=== PATIENT | male | born 1990 | race Hispanic/Latino ===

== ENCOUNTER 2018-04-15 12:18 | Emergency (ER) | payer SELFPAY ==
[2018-04-15] MEDS ORDERED: Acetaminophen 500 MG TAB ONE (13:07)
[2018-04-15] MEDS ORDERED: Ondansetron ODT 4 MG TAB ONE (13:18)
[2018-04-15 14:31] LABS: Bilirubin Negative (Negative); Blood, Urine Negative (Negative); Clarity CLEAR (Clear); Glucose, Urine (Dipstick) Negative (Negative); Leukocyte Moderate (Negative); Nitrite Negative (Negative); Protein, Urine (Dipstick) Trace mg/dL (Neg-Trace); Specific Gravity, Urine 1.026 (1.002-1.036)
[2018-04-15 14:34] LABS: Bacteria/HPF None Seen HPF (None Seen); Hyaline Casts/LPF 0-3 HYALINE CAST LPF (0-3 Hyaline); Squamous Epithelial 0-3 HPF (0-3)
--- NOTE | 2018-04-15 14:46 | RAD ---
EXAM: CHEST ONE VIEW: History: Cough, body aches, fatigue, fever, shortness of breath, sore throat. Comparison: 04-07-16 FINDINGS: Heart size is normal. The lungs are clear. No pneumonia, edema, or pleural effusion. IMPRESSION: No significant intrathoracic disease. No evidence for pneumonia. Stable from prior study. POS: OFF
[2018-04-15 14:49] LABS: Transitional Epithelial 0-3 HPF (0-3)
[2018-04-15] MEDS ORDERED: cefTRIAXone\\ROCEPHIN 250 MG VIAL ONE (15:07)
[2018-04-15] MEDS ORDERED: Azithromycin 250 MG TAB ONE (15:07)
[2018-04-15] MEDS ORDERED: Ibuprofen 800 MG TAB ONE (16:03)
[2018-04-19 14:15] LABS: Chlamydia trachomatis by NAA Positive (Negative)
== END 2018-04-15 16:20 | disposition home or self-care (01) ==
LOC: ERS 12:18
DX: B34.9 Viral infection, unspecified (principal); N34.2 Other urethritis; F17.210 Nicotine dependence, cigarettes, uncomplicated
CPT/HCPCS: 71045; 81003; 81015; 87081; 87086; 87430; 87491; 87591; 87804; 94640; 96372; J0696; J7620; Q0162

== ENCOUNTER 2018-09-09 11:16 | Emergency (ER) | payer SELFPAY ==
[2018-09-09 11:58] LABS: Bilirubin Negative (Negative); Blood, Urine Negative (Negative); Clarity CLEAR (Clear); Glucose, Urine (Dipstick) Negative (Negative); Leukocyte Small (Negative); Nitrite Negative (Negative); Protein, Urine (Dipstick) Negative (Neg-Trace); Urobilinogen 0.2 mg/dL (0.2-1.0); pH, Urine 6.5 (5.0-9.0)
[2018-09-09 12:23] LABS: Bacteria/HPF None Seen HPF (None Seen); Hyaline Casts/LPF NONE SEEN LPF (0-3 Hyaline); RBC/HPF None Seen HPF (0-3); Squamous Epithelial None Seen HPF (0-3)
[2018-09-09] MEDS ORDERED: cefTRIAXone\\ROCEPHIN 250 MG VIAL ONE (12:51)
[2018-09-09] MEDS ORDERED: Azithromycin 250 MG TAB ONE (12:51)
[2018-09-09] MEDS ORDERED: Lidocaine 1% PF 5 ML VIAL ONE (12:51)
[2018-09-11 18:08] LABS: Chlamydia trachomatis by NAA Negative (Negative)
== END 2018-09-09 13:11 | disposition home or self-care (01) ==
LOC: ERS 11:16
DX: N34.2 Other urethritis (principal); Z71.6 Tobacco abuse counseling; F17.210 Nicotine dependence, cigarettes, uncomplicated
CPT/HCPCS: 81003; 81015; 87491; 87591; 96372; 99406; J0696; J2001

== ENCOUNTER 2018-11-28 14:57 | Emergency (ER) | payer SELFPAY | END 2018-11-28 16:36 | disposition home or self-care (01) | LOC: ERS 14:57 | DX: L50.9 Urticaria, unspecified (principal); F17.210 Nicotine dependence, cigarettes, uncomplicated | CPT/HCPCS: 99282 ==

== ENCOUNTER 2019-01-07 19:36 | Emergency (ER) | payer SELFPAY ==
[2019-01-07] MEDS ORDERED: Ondansetron ODT 4 MG TAB ONE (20:32)
[2019-01-07 20:43] LABS: #Basophils 0.2 thou/uL (0.0-0.2); #Eosinphils 0.7 thou/uL (0.0-0.7); #Lymphocytes 3.5 thou/uL (1.20-3.40); #Monocytes 0.9 thou/uL (0.11-0.59); #Neutrophils 5.6 thou/uL (1.40-6.50); %Basophils 1.5 % (0.0-1.0); %Eosinophils 6.7 % (0.0-10.0); %Monocytes 8.6 % (0.0-10.0); %Neutrophils 51.2 % (42.0-75.0); Hemoglobin 15.5 g/dL (14.0-18.0); Mean Corpuscular Hemoglobin 28.4 pg (27.0-31.0); Mean Corpuscular Volume 86.1 fL (78.0-98.0); Mean Platelet Volume 6.8 fL (7.4-10.4); Platelet Count 333 thou/uL (130-400); RBC Distribution Width 12.4 % (11.5-14.5); Red Blood Cell (RBC) Count 5.45 mill/uL (4.70-6.10)
[2019-01-07 21:18] LABS: Bilirubin Negative (Negative); Blood, Urine Negative (Negative); Clarity Clear (Clear); Glucose, Urine (Dipstick) Normal (Negative); Leukocyte Negative Leu/uL (Negative); Nitrite Negative (Negative); Protein, Urine (Dipstick) 20 mg/dL (Neg-Trace); Urobilinogen Normal mg/dL (Less than 2)
[2019-01-07 21:49] LABS: ALT (SGPT) 20 U/L (8-55); AST (SGOT) 21 U/L (5-34); Albumin 4.8 g/dL (3.5-5.0); Alkaline Phosphatase 71 U/L (40-110); Anion Gap 12 mmol/L (10-20); BUN (Urea Nitrogen) 17 mg/dL (8.9-20.6); Bilirubin, Total 0.3 mg/dL (0.2-1.2); Calc. Creatinine Clearance 0 mL/min (70-130); Calcium 9.7 mg/dL (7.8-10.44); Carbon Dioxide 27 mmol/L (22-29); Chloride 101 mmol/L (98-107); Estimated GFR-MDRD Greater than 90; Glucose 110 mg/dL (70-105); Potassium 3.8 mmol/L (3.5-5.1); Protein, Total 7.8 g/dL (6.0-8.3); Sodium 136 mmol/L (136-145)
== END 2019-01-07 21:58 | disposition home or self-care (01) ==
LOC: ERS 19:36
DX: R10.32 Left lower quadrant pain (principal); F17.210 Nicotine dependence, cigarettes, uncomplicated
CPT/HCPCS: 36415; 80053; 81003; 83605; 85025; 86140; 87804; 99284; Q0162

== ENCOUNTER 2019-08-07 19:27 | Emergency (ER) | payer SELFPAY | END 2019-08-07 22:00 | LOC: ERS 19:27 | DX: Z53.21 Procedure and treatment not carried out due to patient leaving prior to being seen by health care provider (principal) ==

== ENCOUNTER 2020-09-12 19:18 | Emergency (ER) | payer SELFPAY ==
[2020-09-12] MEDS ORDERED: Morphine 4 MG/ML VIAL ONE (19:55)
[2020-09-12] MEDS ORDERED: Ketorolac Tromethamine 30 MG/ML VIAL ONE (19:55)
== END 2020-09-12 20:45 | disposition home or self-care (01) ==
LOC: ERS 19:18
DX: T20.212A Burn of second degree of left ear [any part, except ear drum], initial encounter (principal); T31.0 Burns involving less than 10% of body surface; X08.8XXA Exposure to other specified smoke, fire and flames, initial encounter
CPT/HCPCS: 96372; 99283; J1885; J2270

== ENCOUNTER 2020-11-02 | Emergency (ER) | payer SELFPAY | END 2020-11-02 20:05 | disposition home or self-care (01) ==

== ENCOUNTER 2021-08-01 19:25 | Emergency (ER) | payer SELFPAY ==
[2021-08-01 19:52] LABS: #Basophils 0.1 thou/uL (0.0-0.2); #Eosinphils 0.4 thou/uL (0.0-0.7); #Lymphocytes 3.8 thou/uL (1.20-3.40); #Monocytes 0.9 thou/uL (0.11-0.59); #Neutrophils 5.8 thou/uL (1.40-6.50); %Basophils 1.1 % (0.0-1.0); %Eosinophils 3.8 % (0.0-10.0); %Lymphocytes 34.5 % (21.0-51.0); %Monocytes 7.8 % (0.0-10.0); %Neutrophils 52.7 % (42.0-75.0); Mean Corpuscular HGB CONC 33.2 g/dL (32.0-36.0); Mean Corpuscular Hemoglobin 28.7 pg (27.0-31.0); Mean Corpuscular Volume 86.4 fL (78.0-98.0); Mean Platelet Volume 6.4 fL (7.4-10.4); Platelet Count 408 thou/uL (130-400); RBC Distribution Width 12.5 % (11.5-14.5); Red Blood Cell (RBC) Count 5.56 mill/uL (4.70-6.10)
[2021-08-01 20:12] LABS: ALT (SGPT) 27 U/L (8-55); AST (SGOT) 29 U/L (5-34); Albumin 4.9 g/dL (3.5-5.0); Alkaline Phosphatase 73 U/L (40-110); Anion Gap 16 mmol/L (10-20); BUN (Urea Nitrogen) 20 mg/dL (8.9-20.6); Bilirubin, Total 0.5 mg/dL (0.2-1.2); Calc. Creatinine Clearance 0 mL/min (70-130); Calcium 9.4 mg/dL (7.8-10.44); Carbon Dioxide 24 mmol/L (22-29); Chloride 102 mmol/L (98-107); Globulin 3.5 g/dL (2.4-3.5); Glucose 83 mg/dL (70-105); Lipase 21 U/L (8-78); Potassium 3.6 mmol/L (3.5-5.1); Protein, Total 8.4 g/dL (6.0-8.3); Sodium 138 mmol/L (136-145)
[2021-08-01] MEDS ORDERED: Aspirin Chewable 81 MG TAB ONE (20:13)
[2021-08-01] MEDS ORDERED: Ibuprofen 200 MG TAB ONE (20:57)
== END 2021-08-01 21:08 | disposition home or self-care (01) ==
LOC: ERS 19:25
DX: R07.2 Precordial pain (principal)
CPT/HCPCS: 36415; 71045; 80053; 83690; 84484; 85025; 93005

== ENCOUNTER 2021-11-15 10:51 | Emergency (ER) | payer SELFPAY ==
[2021-11-15] MEDS ORDERED: Ketorolac Tromethamine 30 MG/ML VIAL ONE (11:04)
[2021-11-15 12:27] LABS: Bilirubin Negative (Negative); Blood, Urine Negative (Negative); Clarity Clear (Clear); Glucose, Urine (Dipstick) Normal (Negative); Ketone, Urine Negative (Negative); Leukocyte Negative Leu/uL (Negative); Nitrite Negative (Negative); Protein, Urine (Dipstick) Negative (Neg-Trace); Specific Gravity, Urine 1.027 (1.002-1.036); Urobilinogen Normal mg/dL (Less than 2); pH, Urine 5.5 (5.0-9.0)
[2021-11-15 12:35] LABS: #Basophils 0.1 thou/uL (0.0-0.2); #Eosinphils 0.6 thou/uL (0.0-0.7); #Lymphocytes 3.2 thou/uL (1.20-3.40); #Monocytes 0.7 thou/uL (0.11-0.59); #Neutrophils 5.5 thou/uL (1.40-6.50); %Basophils 0.9 % (0.0-1.0); %Lymphocytes 31.8 % (21.0-51.0); %Monocytes 6.9 % (0.0-10.0); %Neutrophils 54.4 % (42.0-75.0); Hemoglobin 15.1 g/dL (14.0-18.0); Mean Corpuscular HGB CONC 32.6 g/dL (32.0-36.0); Platelet Count 360 thou/uL (130-400); RBC Distribution Width 12.3 % (11.5-14.5); Red Blood Cell (RBC) Count 5.39 mill/uL (4.70-6.10); White Blood Cell (WBC) Count 10.2 thou/uL (4.8-10.8)
[2021-11-15 12:59] LABS: ALT (SGPT) 40 U/L (8-55); AST (SGOT) 30 U/L (5-34); Albumin 4.6 g/dL (3.5-5.0); Alkaline Phosphatase 63 U/L (40-110); Anion Gap 15 mmol/L (10-20); BUN (Urea Nitrogen) 17 mg/dL (8.9-20.6); Bilirubin, Total 0.4 mg/dL (0.2-1.2); Calc. Creatinine Clearance 0 mL/min (70-130); Calcium 10.6 mg/dL (7.8-10.44); Carbon Dioxide 26 mmol/L (22-29); Chloride 101 mmol/L (98-107); Estimated GFR 121; Globulin 3.2 g/dL (2.4-3.5); Glucose 73 mg/dL (70-105); Lipase 17 U/L (8-78); Potassium 3.8 mmol/L (3.5-5.1); Protein, Total 7.8 g/dL (6.0-8.3); Sodium 138 mmol/L (136-145)
[2021-11-15] MEDS ORDERED: HYDROcodone/Acetaminophen 5/325 mg Tablet ONE (13:21)
== END 2021-11-15 14:00 | disposition home or self-care (01) ==
LOC: EEVIPCON 10:51 → ERS 10:51
DX: R10.9 Unspecified abdominal pain (principal)
CPT/HCPCS: 71045; 80053; 81003; 83690; 84484; 85025; 96374; J1885

== ENCOUNTER 2023-03-07 16:39 | Emergency (ER) | payer SELFPAY ==
[2023-03-07] MEDS ORDERED: cefTRIAXone (ROCEPHIN) 500 MG VIAL ONE (17:29)
[2023-03-07] MEDS ORDERED: Azithromycin 500 MG VIAL ONE (17:29)
[2023-03-07] MEDS ORDERED: Lidocaine 1% MPF 2 ML VIAL ONE (17:29)
[2023-03-07] MEDS ORDERED: Azithromycin 250 MG TAB ONE (17:30)
[2023-03-07 23:39] LABS: Chlam.trachomatis by PCR,Urine Not Detected (NotDetected); GC N.gonorrhoeae PCR,UrineVOID Not Detected (NotDetected)
== END 2023-03-07 17:45 | disposition home or self-care (01) ==
LOC: ERS 16:39
DX: R30.0 Dysuria (principal); F17.210 Nicotine dependence, cigarettes, uncomplicated; Z20.2 Contact with and (suspected) exposure to infections with a predominantly sexual mode of transmission
CPT/HCPCS: 87491; 87591; 96372; 99284; J0456; J0696

== ENCOUNTER 2024-12-15 19:08 | Emergency (ER) | payer SELFPAY | END 2024-12-15 22:33 | disposition home or self-care (01) | LOC: ERS 19:08 | DX: M79.5 Residual foreign body in soft tissue (principal); F17.210 Nicotine dependence, cigarettes, uncomplicated | CPT/HCPCS: 99283 ==

== ENCOUNTER 2025-02-07 11:33 | Emergency (ER) | payer SELFPAY ==
[2025-02-07] MEDS ORDERED: Ibuprofen 800 MG TAB ONE (12:45)
[2025-02-07] MEDS ORDERED: Acetaminophen 500 MG TAB ONE (13:45)
[2025-02-07 14:13] LABS: #Basophils 0.12 10x3/uL (0.0-0.2); #Eosinophils 0.30 10x3/uL (0.0-0.7); #Monocytes 1.28 10x3/uL (0.11-0.59); #Neutrophils 18.04 10x3/uL (1.40-6.50); %Basophils 0.6 % (0.0-1.0); %Eosinophils 1.4 % (0.0-10.0); %Lymphocytes 6.9 % (21.0-51.0); %Monocytes 6.0 % (0.0-10.0); %Neutrophils 84.6 % (42.0-75.0); Hematocrit 44.9 % (42.0-52.0); Hemoglobin 14.2 g/dL (14.0-18.0); Mean Corpuscular Hemoglobin 26.6 pg (27.0-31.0); Mean Corpuscular Volume 84.1 fL (78.0-98.0); Platelet Count 379 10x3/uL (130-400); Red Blood Cell (RBC) Count 5.34 mill/uL (4.70-6.10); White Blood Cell (WBC) Count 21.31 10x3/uL (4.8-10.8)
[2025-02-07 14:32] LABS: ALT (SGPT) 14 U/L (Less than 45); AST (SGOT) 22 U/L (11-34); Albumin 4.0 g/dL (3.1-4.5); Alkaline Phosphatase 82 U/L (40-110); Anion Gap 17 mmol/L (10-20); BUN (Urea Nitrogen) 15 mg/dL (8.9-20.6); Bilirubin, Total 0.3 mg/dL (0.3-1.2); Calc. Creatinine Clearance 0 mL/min (70-130); Calcium 9.2 mg/dL (7.8-10.44); Carbon Dioxide 24 mmol/L (22-29); Chloride 99 mmol/L (98-107); Globulin 3.3 g/dL (2.4-3.5); Glucose 83 mg/dL (70-105); Potassium 3.9 mmol/L (3.5-5.1); Sodium 136 mmol/L (136-145)
[2025-02-07] MEDS ORDERED: Iopamidol-370 76% 500 ML MDV (1 ML CHARGE) ONE (14:36)
[2025-02-07] MEDS ORDERED: Dexamethasone 10 MG/ML VIAL ONE (16:47)
[2025-02-07] MEDS ORDERED: Amoxicillin/Potassium Clav 875 MG TAB ONE (16:47)
== END 2025-02-07 17:13 | disposition home or self-care (01) ==
LOC: ERS 11:33
DX: J02.0 Streptococcal pharyngitis (principal); R07.81 Pleurodynia; F17.210 Nicotine dependence, cigarettes, uncomplicated
CPT/HCPCS: 36415; 70450; 70491; 71045; 80053; 83605; 85025; 87428; 87430; 93005; J1100; Q9967